=== PATIENT | female | born 1985 | race African-American/Black ===

== ENCOUNTER 2024-06-18 16:13 | Inpatient (IN) | payer OTHER ==
[2024-06-18 17:18] VITALS: BMI 21.4
[2024-06-18] MEDS ORDERED: ONDANSETRON *ODT* 4 MG TABLET SL PRN (18:11)
[2024-06-18] MEDS ORDERED: hydrOXYzine PAMOATE 25 MG CAPSULE (FP) PO PRN (18:11)
[2024-06-18] MEDS ORDERED: BISMUTH SUBSALICYLATE 524 MG/30 ML PO PRN (18:11)
[2024-06-18] MEDS ORDERED: DICYCLOMINE HCL 10 MG CAPSULE PO PRN (18:11)
[2024-06-18] MEDS ORDERED: guaiFENesin 600 MG TABLET.ER (FP) PO PRN (18:11)
[2024-06-18] MEDS ORDERED: LOPERAMIDE HCL 2 MG CAPSULE PO PRN (18:11)
[2024-06-18] MEDS ORDERED: ACETAMINOPHEN 325 MG TABLET (FP) PO PRN (18:11)
[2024-06-18] MEDS ORDERED: MAGNESIUM HYDROX 2400MG/30ML ORAL SUSPENSION 30 ML CUP PO PRN (18:11)
[2024-06-18] MEDS ORDERED: METHOCARBAMOL 500 MG TABLET PO PRN (18:11)
[2024-06-18] MEDS ORDERED: ALBUTEROL SO4 HFA INHALER IH PRN (18:12)
[2024-06-18] MEDS: PRENATAL VITAMINS W/ FOLIC ACID TABLET (FP) PO SCH (19:00)
[2024-06-18] MEDS: IBUPROFEN 400 MG TABLET (FP) PO ONE (19:00)
[2024-06-18] MEDS: NICOTINE 14 MG/24 HOURS TOPICAL PATCH TD SCH (19:00)
[2024-06-18] MEDS: THIAMINE 100 MG TABLET PO SCH (22:29)
[2024-06-19] MEDS: LOSARTAN POTASSIUM 50 MG TABLET PO SCH (10:52)
[2024-06-19 12:04] LABS: POTASSIUM 3.9 mmol/L (3.5-5.1)
[2024-06-19 12:05] LABS: CALCIUM 8.4 mg/dL (8.5-10.1)
[2024-06-19 12:06] LABS: ALBUMIN 2.9 g/dl (3.4-5.0); BLOOD UREA NITROGEN 7.2 mg/dL (7-18)
[2024-06-19 12:09] LABS: CREATININE 0.7 mg/dL (0.55-1.3)
[2024-06-19 12:10] LABS: BILIRUBIN,TOTAL 0.4 mg/dL (0.2-1); TOT PROT 6.4 g/dl (6.4-8.2)
[2024-06-19 12:13] LABS: HEMATOCRIT 27.9 % (32.4-45.2); HEMOGLOBIN 9.1 GM/dL (10.7-15.3); MCH 31.8 pg (25.7-33.7); MCHC 32.5 g/dl (32.0-36.0); MEAN CELL VOLUME 97.9 fl (80-96); MEAN PLT VOLUME 7.6 fl (7.5-11.1); PLATELET COUNT 316 10^3/uL (134-434); RBC 2.85 M/mm3 (3.60-5.2); RDW 17.7 % (11.6-15.6); WHITE BLOOD COUNT 5.2 K/mm3 (4.0-10.0)
[2024-06-19] MEDS: IBUPROFEN 400 MG TABLET (FP) PO PRN (22:36)
[2024-06-20 13:37] VITALS: BP 108/68; PULSE 96; RESP 16; TEMP 97.5
[2024-06-20] MEDS ORDERED: MELATONIN 5 MG TABLETS PO PRN (22:00)
== END 2024-06-20 15:14 | disposition home or self-care (01) | DRG 775 ==
LOC: YASAS 16:13 → Y6N 20:14
PROVIDERS: ADMIT Allergy & Immunology; ATTEND Surgery
PROC: HZ2ZZZZ Detoxification Services for Substance Abuse Treatment (ICD-10-PCS; principal; 2024-06-18)
DX: F10.230 Alcohol dependence with withdrawal, uncomplicated (principal); F12.20 Cannabis dependence, uncomplicated; F17.210 Nicotine dependence, cigarettes, uncomplicated; F19.282 Other psychoactive substance dependence with psychoactive substance-induced sleep disorder; G47.30 Sleep apnea, unspecified; I10 Essential (primary) hypertension; Z91.410 Personal history of adult physical and sexual abuse; Z63.0 Problems in relationship with spouse or partner; Z99.89 Dependence on other enabling machines and devices
CPT/HCPCS: 36415; 80053; 80305; 80307; 81025; 85027; 86780; 93005; 93010